=== PATIENT | female | born 1965 | race Caucasian/White ===

== ENCOUNTER 2020-04-17 10:19 | Outpatient (REF) | payer OTHER, SELFPAY ==
--- NOTE | 2020-04-17 | ECG_ITS ---
Test Reason : MORBID OBESITY, PREO Blood Pressure : / mmHG Vent. Rate : 067 BPM Atrial Rate : 067 BPM P-R Int : 118 ms QRS Dur : 080 ms QT Int : 390 ms P-R-T Axes : 023 034 003 degrees QTc Int : 412 ms Normal sinus rhythm Normal ECG When compared with ECG of 16-AUG-2018 16:59, Criteria for Inferior infarct are no longer Present Referred By: Alicia Nichols Electronically Signed By:TAMEKA NEGRO
--- NOTE | 2020-04-17 | XR_ITS ---
EXAMINATION: XR CHEST 2 VIEWS CLINICAL INFORMATION: Morbid obesity. COMPARISON: Chest radiograph dated 08/16/2018. TECHNIQUE: Frontal and lateral views of the chest were obtained. FINDINGS: The heart, great vessels, pulmonary vasculature and mediastinum are normal. The lungs show no focal infiltrate, effusion or pneumothorax. There is no acute osseous abnormality. There is multi-level thoracic spondylosis. IMPRESSION: No active cardiopulmonary disease.
[2020-04-17 11:53] LABS: MANUAL DIFF FLAG NO
[2020-04-17 12:05] LABS: Basophils Percent Auto 0.8 % (0-2); Eosinophils Absolute Auto 0.1 X10*3/uL (0.0-0.4); Eosinophils Percent Auto 2.1 % (0-4); Hemoglobin 13.3 g/dl (12.0-16.0); Imm Gran Abs Auto 0.02 X10*3/uL (0.00-0.03); Imm Gran Pct Auto 0.4 % (0.0-0.4); Lymphocytes Absolute Auto 2.3 X10*3/uL (1.2-4.9); Lymphocytes Percent Auto 43.6 % (20-40); Mean Corpuscular HGB Conc 31.7 g/dl (31.0-35.0); Mean Corpuscular Hemoglobin 27.9 pg (27.0-33.0); Mean Corpuscular Volume 88.1 fL (80-98); Mean Platelet Volume 12.1 fL (9.4-12.3); Monocytes Absolute Auto 0.4 X10*3/uL (0.1-1.2); Monocytes Percent Auto 7.8 % (2-11); Neutrophils Absolute Auto 2.4 X10*3/uL (2.0-8.3); Neutrophils Percent Auto 45.3 % (45-73); Platelet Count 299 X10*3/uL (160-400); Red Blood Count 4.77 X10*6/uL (4.20-5.50); White Blood Count 5.2 X10*3/uL (4.8-10.8)
[2020-04-17 12:08] LABS: Estimated Average Glucose 143 mg/dL; Hemoglobin A1c % 6.6 %
[2020-04-17 12:42] LABS: Alanine Aminotransferase 34 U/L (0-31); Albumin Level 4.3 g/dL (3.5-5.0); Alkaline Phosphatase 109 U/L (39-117); Anion Gap 12 (12-20); Aspartate Amino Transferase 23 U/L (5-31); Bilirubin Total 0.5 mg/dL (0.0-1.0); Blood Urea Nitrogen 15 mg/dL (9-16); C Reactive Protein 1.54 mg/dL (< or = 0.50); Calcium 9.2 mg/dL (8.4-10.2); Carbon Dioxide 25 mmol/L (22-29); Chloride 104 mmol/L (96-108); Cholesterol 167 mg/dL; Estimated Glomerular Filt Rate > 60; Glucose Random 109 mg/dL (60-115); HDL Cholesterol 45 mg/dL; Iron 65 mcg/dL (30-160); LDL Cholesterol Calculated 106 mg/dl; Percent Iron Saturation 19 % (15-50); Potassium 4.4 mmol/l (3.3-5.1); Sodium 137 mmol/L (135-145); Total Iron Binding Capacity 345 mcg/dL (228-428); Total Protein 7.6 g/dL (6.5-8.0); Triglycerides 84 mg/dL; Unsaturated Iron Binding 280 ug/dL
[2020-04-17 13:06] LABS: Ferritin 260 ng/mL (10-250); TSH reflex Free T4 0.89 mIU/mL (0.32-4.0); Vitamin D 25-OH Total 23.9 ng/mL (>30)
[2020-04-17 13:37] LABS: Folate 15.5 ng/mL (> or = 4.0); Vitamin B12 565 pg/mL (200-900)
[2020-04-20 14:37] LABS: Insulin Level Total 18.9 uIU/mL
[2020-04-20 15:26] LABS: Calcium (PTHI) 9.2 mg/dL (8.6-10.4); PTHI 52 pg/mL (14-64)
[2020-04-22 00:12] LABS: Zinc 70 mcg/dL (60-130)
[2020-04-23 17:16] LABS: Vitamin A 27 mcg/dL (38-98)
[2020-04-24 12:47] LABS: Vitamin B1 8 nmol/L (8-30)
== END 2020-04-17 10:20 | disposition home or self-care (01) ==
LOC: HO.LAB 10:19
PROVIDERS: Visit Provider Physician Assistant
DX: Z01.818 Encounter for other preprocedural examination (principal); E66.01 Morbid (severe) obesity due to excess calories; R06.02 Shortness of breath; Z68.42 Body mass index [BMI] 45.0-49.9, adult; Z71.3 Dietary counseling and surveillance
CPT/HCPCS: 36415; 71046; 80053; 80061; 82306; 82607; 82728; 82746; 83036; 83525; 83540; 83970; 84425; 84443; 84590; 84630; 85025; 86140; 93005; 93010; 99211

== ENCOUNTER → 2020-04-23 09:18 | Outpatient (BNVA) | payer OTHER, SELFPAY | PROVIDERS: Visit Provider Physician Assistant | DX: Z76.89 Persons encountering health services in other specified circumstances (principal) ==

== ENCOUNTER → 2020-05-15 10:55 | Outpatient (BNVA) | payer OTHER, SELFPAY | PROVIDERS: Visit Provider Surgery | DX: E66.01 Morbid (severe) obesity due to excess calories (principal); Z68.42 Body mass index [BMI] 45.0-49.9, adult | CPT/HCPCS: 99212 ==

== ENCOUNTER → 2020-05-29 08:17 | Outpatient (BNVA) | payer OTHER, SELFPAY | PROVIDERS: Visit Provider Physician Assistant | DX: Z76.89 Persons encountering health services in other specified circumstances (principal) ==

== ENCOUNTER → 2020-06-09 08:20 | Outpatient (BNVA) | payer OTHER, SELFPAY | PROVIDERS: Visit Provider Physician Assistant | DX: Z76.89 Persons encountering health services in other specified circumstances (principal) ==

== ENCOUNTER → 2020-08-03 12:40 | Outpatient (BNVA) | payer OTHER, SELFPAY | PROVIDERS: Visit Provider Surgery | DX: Z01.818 Encounter for other preprocedural examination (principal); E66.01 Morbid (severe) obesity due to excess calories; Z68.41 Body mass index [BMI] 40.0-44.9, adult; R06.02 Shortness of breath | CPT/HCPCS: 99212 ==

== ENCOUNTER → 2020-08-04 08:07 | Outpatient (BNVA) | payer OTHER, SELFPAY | PROVIDERS: Visit Provider Dietitian, Registered ==

== ENCOUNTER → 2020-08-20 15:22 | Outpatient (BNVA) | payer OTHER, SELFPAY | PROVIDERS: Visit Provider Surgery | DX: E66.01 Morbid (severe) obesity due to excess calories (principal); Z68.41 Body mass index [BMI] 40.0-44.9, adult | CPT/HCPCS: 99212 ==

== ENCOUNTER 2020-08-27 09:50 | Outpatient (REF) | payer OTHER, SELFPAY ==
--- NOTE | 2020-08-27 10:48 | ECG_ITS ---
Test Reason : SOB Blood Pressure : / mmHG Vent. Rate : 077 BPM Atrial Rate : 077 BPM P-R Int : 128 ms QRS Dur : 078 ms QT Int : 374 ms P-R-T Axes : 015 030 007 degrees QTc Int : 423 ms Normal sinus rhythm Normal ECG When compared with ECG of 17-APR-2020 11:11, No significant change was found Referred By: Anais Parker Electronically Signed By:BETH HARDY MD
[2020-08-27 11:19] LABS: MANUAL DIFF FLAG NO
[2020-08-27 11:33] LABS: Basophils Absolute Auto 0.1 X10*3/uL (0.0-0.2); Eosinophils Absolute Auto 0.1 X10*3/uL (0.0-0.4); Eosinophils Percent Auto 1.7 % (0-4); Hematocrit 41.8 % (37-47); Hemoglobin 13.7 g/dl (12.0-16.0); Imm Gran Abs Auto 0.02 X10*3/uL (0.00-0.03); Imm Gran Pct Auto 0.3 % (0.0-0.4); Lymphocytes Absolute Auto 2.2 X10*3/uL (1.2-4.9); Lymphocytes Percent Auto 36.8 % (20-40); Mean Corpuscular HGB Conc 32.8 g/dl (31.0-35.0); Mean Corpuscular Hemoglobin 28.2 pg (27.0-33.0); Mean Corpuscular Volume 86.2 fL (80-98); Mean Platelet Volume 11.6 fL (9.4-12.3); Monocytes Absolute Auto 0.5 X10*3/uL (0.1-1.2); Monocytes Percent Auto 8.5 % (2-11); Neutrophils Absolute Auto 3.1 X10*3/uL (2.0-8.3); Neutrophils Percent Auto 51.7 % (45-73); Platelet Count 313 X10*3/uL (160-400); Red Blood Count 4.85 X10*6/uL (4.20-5.50); Red Cell Distribution Width 13.6 % (11.0-16.0)
[2020-08-27 11:48] LABS: INTERNATIONAL NORM RATIO 2.4 (0.9-1.1); Prothrombin Time 29.2 SEC (10.8-13.0)
[2020-08-27 11:51] LABS: Partial Thromboplastin Time 51.5 SEC (24.1-38.0)
[2020-08-27 11:58] LABS: Albumin Level 4.2 g/dL (3.5-5.0); Anion Gap 13 (12-20); Blood Urea Nitrogen 19 mg/dL (9-16); Calcium 9.3 mg/dL (8.4-10.2); Carbon Dioxide 26 mmol/L (22-29); Chloride 105 mmol/L (96-108); Estimated Glomerular Filt Rate > 60; Glucose Random 105 mg/dL (60-115); Potassium 4.3 mmol/L (3.3-5.1); Sodium 140 mmol/L (135-145)
[2020-08-27 12:28] LABS: Glucose Urine UA NEG (NEG); Leukocyte Esterase Urine TRACE (NEG); Nitrite Urine NEG (NEG); UACC Culture Trigger YES; Urine Blood TRACE (NEG); Urine Ketones NEG (NEG); Urine Protein NEG (NEG-TRACE)
[2020-08-27 12:41] LABS: Appearance Urine CLEAR; Color Urine YELLOW
[2020-08-27 13:42] LABS: Bacteria Urine TRACE /LPF; RBC Urine 0-2 /HPF (0); Squamous Epithelial Cell Urine 1+ /LPF; WBC Urine 0-2 /HPF (0-4)
[2020-09-01 13:12] LABS: Vitamin A 36 mcg/dL (38-98)
== END 2020-08-27 09:51 | disposition home or self-care (01) ==
LOC: HO.LAB 09:50
PROVIDERS: Physician Assistant; PCP Nurse Practitioner Family; Visit Provider Surgery
DX: Z01.818 Encounter for other preprocedural examination (principal); E66.01 Morbid (severe) obesity due to excess calories; Z68.41 Body mass index [BMI] 40.0-44.9, adult; R06.02 Shortness of breath
CPT/HCPCS: 36415; 80048; 81001; 81003; 82040; 84590; 85025; 85610; 85730; 87086; 93005; 99212

== ENCOUNTER 2020-09-02 05:57 | Inpatient (IN) | payer OTHER, SELFPAY ==
[2020-08-27 16:06] VITALS: BMI 43.2
--- NOTE | 2020-09-01 10:34 | HO.ANESPROP2 ---
Documented by User: Paulette Giles 09/01/20 10:37 HPI - Anesthesia Eval Consult details Narrative: 54yo F for Gastrectomy Sleeve h/o DVT/PE - warfarin with lovenox bridge PMFSH Active Problems Active Problems: All Active Problems (Updated 08/27/20 @ 16:13 by Dominga Pascal) Vitamin D deficiency (Acute) Morbid obesity with BMI of 45.0-49.9, adult (Acute) Vitamin A deficiency disease (Acute) BMI 40.0-44.9, adult (Acute) Pre-op examination (Acute) Shortness of breath (Acute) BMI 45.0-49.9, adult (Acute) Hypertension (Acute) Morbid obesity (Acute) Past Medical History Medical History BMI 45.0-49.9, adult DVT (deep vein thrombosis) in Hypertension Morbid obesity Morbid obesity with BMI of 45.0-49.9, adult Pre-diabetes Pulmonary embolism Sleep apnea with use of continuous positive airway pressure (CPAP) Family History Family History Father Heart disease Stroke Mother Diabetes HTN (hypertension) Brother No problems noted. Sister No problems noted. Sister No problems noted. Son No problems noted. Son No problems noted. Daughter No problems noted. Surgical History Surgical History H/O cervical polypectomy History of colonoscopy History of tubal ligation Hx laparoscopic cholecystectomy Social History Social History Are you a primary care transitions nurse to a significant other at home: No Do you presently have visiting nurse or other home services: No Alcohol intake: never Smoking Status: Never smoker Use of substances other than those prescribed or required for medical reasons: No Have you been hit, kicked, punched, or otherwise hurt by someone within the past year? If so, by whom?: No Advance Directives: No Advance Directives Information Provided: No Advance Directives on File: No Recently lost weight without trying: No Meds Allergies Allergy/AdvReac Type Severity Reaction Status Date / Time No Known Allergies Allergy Verified 08/27/20 10:29 [No Known Allergies*] Home Medications Medication Instructions Recorded Confirmed Last Taken Type amlodipine 10 mg-benazepril 40 mg 1 cap PO DAILY 04/23/20 08/27/20 Unknown History capsule fluticasone propionate 50 1 spray INTRANASAL DAILY 04/23/20 08/27/20 Unknown History mcg/actuation nasal spray,suspension warfarin 3 mg tablet 4 mg PO DAILY tab 05/15/20 08/27/20 08/26/20 History Exam Exam Date and Time: September 01, 2020 1034 Height,Weight and Vital Signs: Height 5 ft 1 in Weight 103.759 kg Pertinent Lab Results Pertinent Lab Results: Laboratory Tests 08/27/20 10:55 Blood Type O Positive Antibody Screen NEGATIVE Laboratory Tests 08/27/20 08/27/20 10:55 10:55 WBC 6.0 Hgb 13.7 Hct 41.8 Plt Count 313 Sodium 140 Potassium 4.3 Chloride 105 Carbon Dioxide 26 BUN 19 H Creatinine 0.75 Albumin 4.2 Narrative Narrative: 08/27/20 Normal sinus rhythm Normal ECG When compared with ECG of 17-APR-2020 11:11, No significant change was found Assessment and Plan Assessment Anesthesia Assessment: Chart Reviewed Documented by User: Ward Steve 09/02/20 08:24 COUNT INCLUDES THE [facility] Past Medical History Medical History BMI 45.0-49.9, adult DVT (deep vein thrombosis) in Hypertension Morbid obesity Morbid obesity with BMI of 45.0-49.9, adult Pre-diabetes Pulmonary embolism Sleep apnea with use of continuous positive airway pressure (CPAP) Family History Family History Father Heart disease Stroke Mother Diabetes HTN (hypertension) Brother No problems noted. Sister No problems noted. Sister No problems noted. Son No problems noted. Son No problems noted. Daughter No problems noted. Family history of problems with anesthesia: No Surgical History Surgical History H/O cervical polypectomy History of colonoscopy History of tubal ligation Hx laparoscopic cholecystectomy History of Problems with Anesthesia: No Social History Social History Are you a primary care transitions nurse to a significant other at home: No Do you presently have visiting nurse or other home services: No Alcohol intake: never Smoking Status: Never smoker Use of substances other than those prescribed or required for medical reasons: No Have you been hit, kicked, punched, or otherwise hurt by someone within the past year? If so, by whom?: No Advance Directives: No Advance Directives Information Provided: No Advance Directives on File: No Recently lost weight without trying: No Meds Allergies Allergy/AdvReac Type Severity Reaction Status Date / Time No Known Allergies Allergy Verified 08/27/20 10:29 [No Known Allergies*] Home Medications Medication Instructions Recorded Confirmed Last Taken Type amlodipine 10 mg-benazepril 40 mg 1 cap PO DAILY 04/23/20 08/27/20 Unknown History capsule fluticasone propionate 50 1 spray INTRANASAL DAILY 04/23/20 08/27/20 Unknown History mcg/actuation nasal spray,suspension warfarin 3 mg tablet 4 mg PO DAILY tab 05/15/20 08/27/20 08/26/20 History Exam Airway Mallampati Class: II TM Dist: <=3cm Neck ROM: Full
--- NOTE | 2020-09-01 14:40 | MHC.SHP ---
Pre-Procedural Eval Section B Chief Complaint: severe obesity Allergies: Allergies Allergy/AdvReac Type Severity Reaction Status Date / Time No Known Allergies Allergy Verified 08/27/20 10:29 [No Known Allergies*] Plan I have reviewed the history and physical and performed a pertinent physical examination on my patient. No changes have occurred unless specified.
[2020-09-02] VITALS (13 sets, daily range): BP systolic 121–177; BP diastolic 46–86; PULSE 63–87; RESP 16–20; TEMP 36.2–37; O2SAT 95–98
[2020-09-02 06:36] LABS: COVID-19 Test Negative (Negative)
[2020-09-02 06:39] LABS: INTERNATIONAL NORM RATIO 1.2 (0.9-1.1); Prothrombin Time 13.7 SEC (10.8-13.0)
[2020-09-02] MEDS: Lactated Ringers 1,000 ML 100 ML IVCONT (06:43)
--- NOTE | 2020-09-02 10:34 | PM.OP ---
Brief Operative Note Date of Service: 09/02/20 Pre-op diagnosis: Morbid obesity, BMI 43.2, sleep apnea, history of DVT Post-op diagnosis: other (Same and hiatal hernia) Procedure: Laparoscopic sleeve gastrectomy, significant lysis of adhesions, hiatal hernia repair, Phil block, and intraoperative endoscopy Implants: covidien dex Surgeon: Anais Parker MD Anesthesia: [employer] Supervisor: Cheryl Timmons Estimated blood loss (mL): 10 Pathology: other (Partial gastrectomy) Condition: stable Disposition: PACU
--- NOTE | 2020-09-02 10:36 | P.OP_ITS ---
Operative Note Operative Note Date of Service: 09/02/20 Narrative: Patient was brought into the operating room and placed on the operating room table in the supine position. General anesthesia was induced. Normal DVT prophylaxis was instituted and the patient received 2 grams of cefotetan preoperatively. The abdomen was then prepped and draped in the normal sterile fashion. A safety time-out was performed. A mixture of 1% lidocaine with epinephrine and ??% Marcaine plain was used to a nesthetize the planned incision site in the left upper quadrant. A #11 scalpel was used to make a 5 mm left upper quadrant transverse incision through which a veress needle was placed. Three pops were heard going through the fascia. A saline drop test was used to confirm that the veress needle was intraabdominal. An optiview technique was then used to place a 5mm port in the left upper quadrant. A 5 mm 30 degree laproscope was then placed through this port and the abdominal cavity was surveyed and there were dense adhesions of the omentum to the central abdominal wall. We placed an additional 5 mm port in the left upper quadrant just lateral to placement the 1st port. We then took down these adhesions using the LigaSure device. We noted that there was a 3-4 cm umbilical hernia with omentum in it which we completely reduced. We cleared the abdominal wall of all adhesions. The patient was then placed in reverse Trendelenburg positioning. A jose r liver retractor was then placed in the subxyphoid position and it was used to hold up the left lobe of the liver to the abdominal wall. This was secured to the bed using the liver retractor caldwell. A BRENDA block was then performed for pain control on the right side of the abdomen. A 5 mm port was placed in the right upper quadrant near the falciform ligament. A 12 mm port was then placed in the mid epigastrium. I then performed a BRENDA block on the left side of the abdomen. I then removed the epigastric fat pad; there was a small anterior hiatal hernia noted. I reapproximated the left and right crura with a total of 2 stitches of 2-0 ethibond and a laparoscopic knot pusher. There was no residual hiatal hernia. I then opened up the angle of His. We then gained entry into the lesser sac about 4-5 cm from the pylorus. I had anesthesia place a 34 [place]ian orogastric tube into the distal antrum to use as a sizing tool for gastric pouch size. I divided the short gastric vessels up to the angle of His. We then started the creation of the gastric pouch by firing a 60 mm purple load endostapler up the stomach about 4-5 cm from the pylorus. We completed the creation of the gastric pouch using a total of 4 firings of a 60 mm and 1 firing of a 45 mm purple load stapler. We had anesthesia remove the orogastric tube, then we clamped across the distal antrum using a fired 60 mm endostapler. We flattened the patient and then instilled normal saline surrounding the newly created staple line. I then performed an on-table endoscopy. I passed the gastroscopy into the posterior oropharynx and down the esophagus evaluating the esophageal mucosa which was normal. There was no evidence of hiatal hernia. I passed the gastroscope into the gastric pouch and insufflated the gastric pouch. There was healthy pink mucosa and no evidence of active bleeding. There was no evidence of leak on laparoscopy. I desufflated the gastric pouch and removed the endoscope. I removed the endostapler from the abdomen and suctioned the fluid from the left upper quadrant. I then removed the partial gastrectomy specimen through the epigastric 12 mm port site. I reapproximated the 12 mm port using a 0 maxon suture with a laparoscopic suture passer. I instilled local anesthetic into the fascial closure site and tied the suture down at a pressure of 8-10 mm of Hg. There was no residual fascial defect. We removed the liver retractor and the lef t upper quadrant 5 mm ports under direct visualization. There was no evidence of any active bleeding. I desufflated the abdomen through the last remaining port and removed the laparoscope and 5 mm por t. We reapproximated all incisions with a 4-0 monocryl subcuticular stitch. We cleaned and dried the abdominal skin and applied dermabond skin glue. All count were correct at the end of the case. The patient was awake and in stable condition prior to extubation and transfer to the recovery room.
--- NOTE | 2020-09-02 10:40 | PM.PNGS ---
Subjective Subjective Date of Service: 09/02/20 <Cheryl Timmons PA-C - Last Filed: 09/02/20 10:44> 09/03/20 <Anais Parker MD - Last Filed: 09/03/20 09:29> Interval history: POD #1: Patient is 1 day s/p LSG & hiatal hernia repair. Patient is doing well. Has been ambulating, using the incentive spirometer, and tolerating po liquids. No nausea or abdominal pain. Has some mild incisional pain. <Cheryl Timmons PA-C - Last Filed: 09/02/20 10:44> Pod #1 s/p lap sleeve gastrectomy and hiatal hernia repair. Doing well. Tolerating stage 3 diet, ambulating in hallway. Pain well controlled. Denies nausea or vomiting. Vitals and labs reviewed and are within limit for post op day 1. On exam, patient is well appearing, abdomen is soft, nd, mild appropriate incisional tenderness. Incisions c/d/I with dermabond in place. Plan: d/c home today. Follow up with me in 2 weeks. <Anais Parker MD - Last Filed: 09/03/20 09:29> Physical Exam Vital Signs: Vital Signs: Last Vital Signs Temp 97.2 F 09/02/20 10:31 Pulse 64 09/02/20 10:36 Resp 20 09/02/20 10:36 BP 131/64 09/02/20 10:36 Pulse Ox 97 09/02/20 10:36 Body Mass Index 43.2 <Cheryl Timmons PA-C - Last Filed: 09/02/20 10:44> Const: General: cooperative, comfortable, no acute distress, alert and awake <Cheryl Timmons PA-C - Last Filed: 09/02/20 10:44> Nutritional Appearance: obese <Cheryl Timmons PA-C - Last Filed: 09/02/20 10:44> GI: Inspection: Yes normal to inspection, Yes incision (normal, slight erythema at site of surgical glue, no tenderness/warmth/drai) and Yes obesity <Cheryl Timmons PA-C - Last Filed: 09/02/20 10:44> Extrem: Right lower extremity: lower leg Details: no tenderness; no edema <Cheryl Timmons PA-C Alaina Last Filed: 09/02/20 10:44> Left lower extremity: lower leg Details: no tenderness; no edema <Cheryl Timmons PA-C Alaina Last Filed: 09/02/20 10:44> Progress Note: A&P Assessment and plan (1) Morbid obesity: Status: Acute <ELISABETH Beavers Last Filed: 09/02/20 10:44> (2) Intestinal malabsorption following gastrectomy: Status: Acute <ELISABETH Beavers Last Filed: 09/02/20 10:44> (3) S/P laparoscopic sleeve gastrectomy: Status: Acute <ELISABETH Beavers Last Filed: 09/02/20 10:44> (4) Hiatal hernia: Status: Acute <ELISABETH Beavers Last Filed: 09/02/20 10:44> (5) History of repair of hiatal hernia: Status: Acute <ELISABETH Beavers Last Filed: 09/02/20 10:44> Assessment and Plan: POD #1: Patient doing well and will be discharged home today. All instructions given in writing. Follow up as scheduled in 2 weeks. <Cheryl Timmons PA-C Alaina Last Filed: 09/02/20 10:44> Fall Risk Details Current Medications: Current Medications Generic Name Dose Route Start Last Admin Trade Name Freq PRN Reason Stop Dose Admin Fentanyl 50 mcg 09/02/20 08:46 Fentanyl Citrate/Pf 100 Mcg/2 Ml Vial IVPUSH Q5M PRN Pain, Severe (Pain Scale 7-10) Hydromorphone HCl 0.5 mg 09/02/20 08:46 Hydromorphone Hcl 0.5 Mg/0.5 Ml Syringe IVPUSH Q5M PRN Pain, Severe (Pain Scale 7-10) Lactated Ringer's 1,000 mls @ 100 mls/hr 09/02/20 06:15 09/02/20 06:43 Lr IVCONT 100 mls/hr .Q10H JUAN Administration Ketorolac Tromethamine 15 mg 09/02/20 08:46 Ketorolac Tromethamine 15 Mg/Ml Vial IVPUSH ONCE PRN Pain, Moderate (Pain Scale 4-6 Ondansetron HCl 4 mg 09/02/20 08:46 Ondansetron Hcl 4 Mg/2 Ml Vial IVPUSH ONCE PRN Nausea and Vomiting <Cheryl Timmons PA-C - Last Filed: 09/02/20 10:44> Time Spent With Patient Time: Total time spent is greater than 50% in coordination of care (as documented) at patient's floor/unit and/or counseling patient: <Cheryl Timmons PA-C - Last Filed: 09/02/20 10:44> Time with patient: less than 15 minutes <Anais Parker MD - Last Filed: 09/03/20 09:29>
--- NOTE | 2020-09-02 10:44 | PM.DS ---
DS: Providers Provider Date of Service: 09/04/20 Date of admission: 09/02/20 05:57 Primary care physician: Unknown Physician DS: Diagnosis Discharge Diagnosis (1) Morbid obesity: Status: Acute (2) Intestinal malabsorption following gastrectomy: Status: Acute (3) S/P laparoscopic sleeve gastrectomy: Status: Acute (4) Hiatal hernia: Status: Acute (5) History of repair of hiatal hernia: Status: Acute DS: Medications Discharge Medications Home Medications: Home Medications Medication Instructions Recorded Confirmed amlodipine 10 mg-benazepril 40 mg 1 cap PO DAILY 04/23/20 08/27/20 capsule fluticasone propionate 50 1 spray INTRANASAL DAILY 04/23/20 08/27/20 mcg/actuation nasal spray,suspension warfarin 3 mg tablet 4 mg PO DAILY tab 05/15/20 08/27/20 Previous Rx's Medication Instructions Recorded cholecalciferol (vitamin D3) 25 25 mcg PO DAILY 30 Days #30 cap 04/23/20 mcg (1,000 unit) capsule vitamin A palmitate 10,000 unit 20,000 unit PO DAILY #28 tab 06/24/20 tablet acetaminophen 500 mg tablet 1,000 mg PO Q6H PRN #30 tab 08/27/20 docusate sodium 100 mg capsule 100 mg PO BID #30 cap 08/27/20 enoxaparin 40 mg/0.4 mL 40 mg SUBCUT Q12H #8 ml 08/27/20 subcutaneous syringe famotidine 20 mg tablet 20 mg PO DAILY #30 tab 08/27/20 ondansetron HCl 4 mg tablet 4 mg PO Q6H PRN #30 tab 08/27/20 simethicone 80 mg chewable tablet 80 mg PO TID-QID PRN #30 tab 08/27/20 vitamin A palmitate 10,000 unit 20,000 unit PO DAILY 30 Days #60 09/01/20 tablet tab DS: Summary Time Spent with Patient Time attestation: Total time spent providing and/or coordinating discharge services: Discharge coordination time: Greater than 30 minutes Physical Exam Vital Signs: Vital Signs: Last Vital Signs Temp 97.2 F 09/02/20 10:31 Pulse 65 09/02/20 10:40 Resp 20 09/02/20 10:40 BP 142/70 H 09/02/20 10:40 Pulse Ox 97 02/17/21 10:40 Body Mass Index 43.2 DS: Data Data Completed and Pending Pending studies at discharge: Pending at discharge 09/02/20 10:03 Surgical [PTH] Routine Labs on day of discharge: Laboratory Results - last 24 hr 09/02/20 09/02/20 06:09 06:25 PT 13.7 H D INR 1.2 H COVID-19 ([facility]) Negative COVID-19 Clin Com See Note Discharge Plan Discharge Patient Disposition: Home, Self-Care Referrals: Physician,Unknown [Primary Care Provider] - Discharge Medications: Continued acetaminophen [Tylenol Extra Strength] 500 mg tablet 1,000 mg PO Q6H PRN (Reason: pain) Qty: 30 RF: 1 famotidine [Pepcid AC] 20 mg tablet 20 mg PO DAILY Qty: 30 RF: 1 simethicone [Gas Relief (simethicone)] 80 mg tablet,chewable 80 mg PO TID-QID PRN (Reason: abdominal distention) Qty: 30 RF: 1 ondansetron HCl [Zofran] 4 mg tablet 4 mg PO Q6H PRN (Reason: nausea and vomiting) Qty: 30 RF: 1 docusate sodium [Colace] 100 mg capsule 100 mg PO BID Qty: 30 RF: 1 enoxaparin [Lovenox] 40 mg/0.4 mL syringe 40 mg subcut Q12H Qty: 8 RF: 1 amlodipine-benazepril 10-40 mg capsule 1 cap PO DAILY RF: 0 fluticasone propionate [Flonase Allergy Relief] 50 mcg/actuation spray,suspension 1 spray intranasal DAILY RF: 0 warfarin 3 mg tablet 4 mg PO DAILY RF: 0 Discontinued vitamin A palmitate 10,000 unit tablet 20,000 unit PO DAILY Qty: 28 RF: 0 vitamin A palmitate 10,000 unit tablet 20,000 unit PO DAILY 30 Days Qty: 60 RF: 0 cholecalciferol (vitamin D3) 25 mcg (1,000 unit) capsule 25 mcg PO DAILY 30 Days Qty: 30 RF: 11 Discharge Orders: Discharge Order (Routine); Ordered 09/03/20 Ordered By: Anais Parker Diet: other Activity on Discharge: No heavy lifting Stand Alone Forms: Patient Portal Discharge page Activity Restrictions/Additional Instructions: Discharge Instructions 1. Please call your doctor or come back to the emergency room should any new symptoms arise. 2. You will receive a courtesy call from [facility] 24-48 hours after discharge. 3. Activity: abstain from alcohol, practice limited stair climbing, no bending, no driving, no exercise, no illicit substances, no lifting, no sex, no tub bath, no work. 4. Diet: continue stage 3 protein shakes until your [address] Parker. 5. Dressing Change/Wound Care: Your incision is covered by surgical glue. If the area is tender, you may apply an ice pack for short intervals (no more than 20 minutes on, followed by at least 20 minutes off). Do not apply heat. Do not use creams, lotions, or topical antibiotics unless instructed to do so by your surgeon. These can cause infection or allergic reaction. 6. Call your doctor if: - Your temperature exceeds 101.5 F - You experience excessive pain or swelling - You have an unexpected reaction to medication - You have excessive bleeding - You experience continued vomiting/nausea - Your incision begins to separate - Your incision shows signs of infection such as increased redness, swelling, excessive pain, heat, or drainage (light blood or clear fluid is normal) 7. General instructions: - No lifting greater than 5 lbs for the next 4 weeks. - No driving within 24 hours of taking narcotic pain medications. - If you do not move your bowels in the next 2 days, please take milk of magnesia over the counter. Please follow the post op diet and do not advance your diet until you are seen in the office in about 2 weeks. - Please walk around your home every hour or two to prevent blood clots from forming in your legs. You do not need to wake from sleeping to walk. - Please sleep in a bed or couch to prevent kinking at the hips and knees. - Please take your incentive spirometer (your lung slackman) home with you and use it for the next few days to prevent pneumonias. - You may shower, no hot tubs, baths or swimming pools. - Please call the office with any questions or concerns such as increasing abdominal pain, fever, chills, shortness of breath, chest pain, leg pain or swelling, or redness or drainage from your incisions. - Please stay on stage 3 diet which includes sugar free clear liquids such as ice pops and jello and broth and crystal light. Avoid all carbonation. Please drink 3 protein shakes with at least 25-30 grams of protein daily or 3 of the Celebrate 4:1 shakes which can be purchased in our office. The Celebrate shakes have all of the bariatric vitamins you need if you consume these shakes. If you are drinking other protein shakes, you will need to purchase the Celebrate multivitamins and calcium that we provide in the office (they will provide all the vitamins you need). Please make sure you are consuming at least 40-60 ounces of water in addition to your 3 protein shakes daily. 8. Do not hesitate to contact the office with any questions at . Discharge Summary Date of Service: 09/03/20 Admitting Diagnosis: obesity Discharge Diagnosis: same, and hiatal hernia Procedure Performed: LSG, thea block, repair of hiatal hernia, intra-operative endoscopy Discharge Medications: 1. Simethicone 80mg tablet chewable (Si tablet every 6 hours orally for 7 days, #28, 1 RF) q4h prn gas 2. Acetaminophen 500 mg tablet (Si tablets as needed every 6 hours orally for 30 days, #240, 0 RF) 3. Ondansetron 4 mg tablet disintegrating (Si tablet every 6 hours orally for 7 days, #28, 1 RF) 4. Colace 100 mg capsule (Si capsule twice a day for 30 days, #60, 2 RF) 5. Pepcid 20 mg chewable tablet (Si tablet twice a day for 30 days, #60, 3 RF) Discharge Instructions: The patient should continue on the stage III bariatric diet, which includes 3 protein shakes of at least 20-30g of protein on a daily basis. The patient was encouraged to avoid drinking liquids with her protein shakes. They should wait 30-45 minutes in between her meals and drinking water. She should drink at least 40-60 ounces of water on a daily basis. They should ambulate while at home to avoid any blood clots in her lower extremities. They should call with any questions or concerns such as increase in abdominal pain, persistent nausea, vomiting, redness and drainage from her incisions, fever, chills, shortness of breast, or chest pain beyond what is normal for her. The patient should avoid all heavy lifting greater than 5 pounds for the next 4 weeks. The patient is already scheduled to follow up with me in 2 weeks time, but should call the office with any questions prior to that follow up appointment. The patient should not advance their diet until they are seen in the office for the 2 week appointment. Hospital Course: The patient was admitted after undergoing LSG and hiatal hernia repair. They were started on stage II (1 oz of fluid every 15 minutes) on POD #0. The next morning they were evaluated and started on stage III diet (protein shakes). All labs were within normal limits. On post-operative day #1 she was feeling better, nausea and epigastric pain improved and they were tolerating stage III bariatric diet well. The patient was discharged home. Discharge Disposition: Home. Visit Report Forms: Patient Portal Discharge page Care Plan Goals: weight loss Health Concerns: obesity Plan of Treatment: LSG Discharge Date/Time: 09/03/20 09:36
[2020-09-02] MEDS: HYDROmorphone HCl 0.5 MG/0.5 ML SYRINGE IVPUSH (10:55)
[2020-09-02] MEDS: ondansetron HCL 4 MG/2 ML VIAL IVPUSH ×2 (12:54→20:21)
[2020-09-02] MEDS: Famotidine/PF 20 MG/2 ML VIAL IVPUSH ×2 (12:54→20:20)
[2020-09-02] MEDS: Lactated Ringers 1,000 ML 125 ML IVCONT (13:00)
[2020-09-02] MEDS: Fluticasone Propionate Nasal 16 GM SPRAY 1 SPRAY NOSTRIL-B (14:08)
[2020-09-02] MEDS: amLODIPine Besylate 10 MG TABLET PO (14:08)
[2020-09-02] MEDS: Enoxaparin Sodium 40 MG/0.4 ML SYRINGE SUBCUT (16:56)
[2020-09-02] MEDS: Metoclopramide HCl 10 MG/2 ML VIAL IVPUSH (16:56)
[2020-09-02] MEDS: cefoTEtan disodium 2 GM in 0.9 % Sodium Chloride 50 ML IV (19:46)
[2020-09-03] VITALS: BP 142/71; PULSE 89; RESP 18; TEMP 36.8; O2SAT 95
[2020-09-03] MEDS: Lactated Ringers 1,000 ML 125 ML IVCONT (02:49)
[2020-09-03 04:00] VITALS: BP 156/71; PULSE 74; RESP 18; TEMP 36.7; O2SAT 95
[2020-09-03 04:42] LABS: MANUAL DIFF FLAG NO
[2020-09-03 04:45] LABS: Basophils Percent Auto 0.2 % (0-2); Hematocrit 42.2 % (37-47); Hemoglobin 13.9 g/dl (12.0-16.0); Imm Gran Abs Auto 0.05 X10*3/uL (0.00-0.03); Imm Gran Pct Auto 0.4 % (0.0-0.4); Lymphocytes Absolute Auto 1.9 X10*3/uL (1.2-4.9); Lymphocytes Percent Auto 14.4 % (20-40); Mean Corpuscular HGB Conc 32.9 g/dl (31.0-35.0); Mean Corpuscular Hemoglobin 28.6 pg (27.0-33.0); Mean Corpuscular Volume 86.8 fL (80-98); Mean Platelet Volume 11.2 fL (9.4-12.3); Monocytes Absolute Auto 0.9 X10*3/uL (0.1-1.2); Monocytes Percent Auto 6.9 % (2-11); Neutrophils Absolute Auto 10.3 X10*3/uL (2.0-8.3); Neutrophils Percent Auto 78.1 % (45-73); Platelet Count 341 X10*3/uL (160-400); Red Blood Count 4.86 X10*6/uL (4.20-5.50); Red Cell Distribution Width 13.5 % (11.0-16.0); White Blood Count 13.1 X10*3/uL (4.8-10.8)
[2020-09-03 05:05] LABS: Anion Gap 15 (12-20); Blood Urea Nitrogen 8 mg/dL (9-16); Calcium 8.8 mg/dL (8.4-10.2); Carbon Dioxide 24 mmol/L (22-29); Chloride 104 mmol/L (96-108); Creatinine Clr Calc Pharmacy 87.9; Estimated Glomerular Filt Rate > 60; Glucose Random 129 mg/dL (60-115); Sodium 139 mmol/L (135-145)
[2020-09-03] MEDS: ondansetron HCL 4 MG/2 ML VIAL IVPUSH (05:05)
[2020-09-03] MEDS: Enoxaparin Sodium 40 MG/0.4 ML SYRINGE SUBCUT (05:05)
[2020-09-03 07:14] VITALS: BP 168/78; PULSE 83; RESP 16; TEMP 37; O2SAT 96
[2020-09-03 08:00] VITALS: BP 168/78; PULSE 83; RESP 16; TEMP 37; O2SAT 96
[2020-09-03] MEDS: amLODIPine Besylate 10 MG TABLET PO (09:18)
[2020-09-03] MEDS: Famotidine/PF 20 MG/2 ML VIAL IVPUSH (09:18)
--- NOTE | 2020-09-03 09:47 | MHC.CM.PN ---
EMR REVIEWED, PT ADMITTED S/P LAPROSCOPIC GASTRIC SLEEVE AND HERNIA REPAIR, CM MET WITH PT WHO IS ALERT AND ORIENTED, PT REPORTS SHE LIVES WITH BOYFRIEND HOWEVER WILL BE STAYING WITH HER MOM IN [place] UNTIL SHE RECOVERS FROM SURGERY, PT REPORTS SHE IS INDEPENDENT WITH ALL CARE, HAS NO HOME SERVICES AND USES A CPAP AT NIGHT, PT DENIES ANY OTHER DME. PT ABLE TO VERIFY PCP AND DECLINES A HEALTH CARE PROXY AT THIS TIME. DISCHARGE PLAN: HOME SELF-CARE, MOTHER TO TRANSPORT, FOLLOW-UP W/SURGEON IN OFFICE. PCP: [facility]: [facility]
--- NOTE | 2020-09-03 10:48 | HO.POSTANES ---
Post Anesthesia Evaluation Post Anesthesia Evaluation Vital Signs: Vital Signs Temp Pulse Resp BP Pulse Ox 09/03/20 08:00 98.6 F 83 16 168/78 H 96 09/03/20 07:14 98.6 F 83 16 168/78 H 96 09/03/20 04:00 98.1 F 74 18 156/71 H 95 09/03/20 00:00 98.3 F 89 18 142/71 H 95 Anesthesia: General Endotracheal-GETA Mental Status: Awake Pain Control: Satisfactory Nausea/Vomiting: None Hydration: Adequate Anesthesia-Related Issues: No Anes. Related Issues
== END 2020-09-03 09:36 | disposition home or self-care (01) | DRG 403 ==
LOC: HO.SSSA 05:59 → HO.S3 10:56
PROVIDERS: Physician Assistant; Admitting Provider Surgery; PCP Student in an Organized Health Care Education/Training Program; Visit Provider Surgery
PROC: 0DB64Z3 Excision of Stomach, Percutaneous Endoscopic Approach, Vertical (ICD-10-PCS; CPT 43845; principal; 2020-09-02 08:10)
DX: E66.01 Morbid (severe) obesity due to excess calories (principal); K44.9 Diaphragmatic hernia without obstruction or gangrene; Z20.822 Contact with and (suspected) exposure to COVID-19; Z86.718 Personal history of other venous thrombosis and embolism; Z86.711 Personal history of pulmonary embolism; Z68.41 Body mass index [BMI] 40.0-44.9, adult; Z79.01 Long term (current) use of anticoagulants; Z79.51 Long term (current) use of inhaled steroids; Z79.899 Other long term (current) drug therapy
CPT/HCPCS: 36415; 80048; 85025; 85610; 86850; 86900; 86901; 87635; 88307; 88342; C1776; J0131; J1100; J1170; J1650; J2250; J2405; J2765; J3010

== ENCOUNTER → 2020-09-17 09:58 | Outpatient (BNVA) | payer OTHER, SELFPAY | PROVIDERS: Visit Provider Surgery | DX: Z98.890 Other specified postprocedural states (principal); Z87.19 Personal history of other diseases of the digestive system; Z98.84 Bariatric surgery status | CPT/HCPCS: 99212 ==

== ENCOUNTER → 2020-11-13 12:29 | Outpatient (BNVA) | payer OTHER, SELFPAY | PROVIDERS: Referring Provider Student in an Organized Health Care Education/Training Program; Visit Provider Physician Assistant | DX: E66.9 Obesity, unspecified (principal); K91.2 Postsurgical malabsorption, not elsewhere classified; Z68.35 Body mass index [BMI] 35.0-35.9, adult; Z98.84 Bariatric surgery status; Z90.3 Acquired absence of stomach [part of]; Z98.890 Other specified postprocedural states; Z87.19 Personal history of other diseases of the digestive system | CPT/HCPCS: 99212 ==

== ENCOUNTER → 2020-11-20 09:46 | Outpatient (BNVA) | payer OTHER, SELFPAY | PROVIDERS: PCP Student in an Organized Health Care Education/Training Program; Referring Provider Student in an Organized Health Care Education/Training Program; Visit Provider Dietitian, Registered | DX: E66.9 Obesity, unspecified (principal); Z68.37 Body mass index [BMI] 37.0-37.9, adult | CPT/HCPCS: 97803 ==

== ENCOUNTER → 2021-01-08 08:14 | Outpatient (BNVA) | payer OTHER, SELFPAY | PROVIDERS: PCP Student in an Organized Health Care Education/Training Program; Visit Provider Physician Assistant ==

== ENCOUNTER → 2021-02-23 13:58 | Outpatient (BNVA) | payer OTHER, SELFPAY | PROVIDERS: PCP Student in an Organized Health Care Education/Training Program; Referring Provider Student in an Organized Health Care Education/Training Program; Visit Provider Physician Assistant | DX: E66.9 Obesity, unspecified (principal); K91.2 Postsurgical malabsorption, not elsewhere classified; Z68.35 Body mass index [BMI] 35.0-35.9, adult; Z90.3 Acquired absence of stomach [part of]; Z98.890 Other specified postprocedural states; Z87.19 Personal history of other diseases of the digestive system; Z98.84 Bariatric surgery status | CPT/HCPCS: 99212 ==

== ENCOUNTER → 2021-03-16 08:41 | Outpatient (BNVA) | payer OTHER, SELFPAY | PROVIDERS: PCP Student in an Organized Health Care Education/Training Program; Visit Provider Dietitian, Registered | DX: E66.9 Obesity, unspecified (principal); Z68.37 Body mass index [BMI] 37.0-37.9, adult | CPT/HCPCS: 97803 ==

== ENCOUNTER → 2021-04-05 08:51 | Outpatient (BNVA) | payer OTHER, SELFPAY | PROVIDERS: PCP Student in an Organized Health Care Education/Training Program; Visit Provider Surgery | DX: E66.9 Obesity, unspecified (principal); Z68.37 Body mass index [BMI] 37.0-37.9, adult; Z98.84 Bariatric surgery status | CPT/HCPCS: 99212 ==

== ENCOUNTER → 2021-05-12 08:12 | Outpatient (BNVA) | payer OTHER, SELFPAY | PROVIDERS: PCP Student in an Organized Health Care Education/Training Program; Referring Provider Student in an Organized Health Care Education/Training Program; Visit Provider Physician Assistant Surgical | DX: E66.9 Obesity, unspecified (principal); K44.9 Diaphragmatic hernia without obstruction or gangrene; Z68.37 Body mass index [BMI] 37.0-37.9, adult | CPT/HCPCS: 99212 ==

== ENCOUNTER → 2021-05-28 08:02 | Outpatient (BNVA) | payer OTHER, SELFPAY | PROVIDERS: PCP Student in an Organized Health Care Education/Training Program; Visit Provider Dietitian, Registered | DX: E66.9 Obesity, unspecified (principal); Z68.37 Body mass index [BMI] 37.0-37.9, adult | CPT/HCPCS: 97803 ==

== ENCOUNTER → 2021-09-01 08:09 | Outpatient (BNVA) | payer OTHER, SELFPAY | PROVIDERS: PCP Student in an Organized Health Care Education/Training Program; Visit Provider Physician Assistant Surgical ==

== ENCOUNTER → 2021-10-11 08:10 | Outpatient (BNVA) | payer OTHER, SELFPAY | PROVIDERS: PCP Student in an Organized Health Care Education/Training Program; Visit Provider Physician Assistant Surgical | DX: E66.9 Obesity, unspecified (principal) ==

== ENCOUNTER → 2021-11-23 09:31 | Outpatient (BNVA) | payer OTHER, SELFPAY | PROVIDERS: PCP Student in an Organized Health Care Education/Training Program; Referring Provider Student in an Organized Health Care Education/Training Program; Visit Provider Physician Assistant Surgical | DX: E66.9 Obesity, unspecified (principal) | CPT/HCPCS: 99212 ==